=== PATIENT | male | born 1985 | race Caucasian/White ===

== ENCOUNTER → 2020-04-17 14:46 | Outpatient (CLI) | payer OTHER, SELFPAY ==
[2020-04-18 00:36] LABS: COVID19 Sendout Not Detected (Not Detect)
== END ==
PROVIDERS: PCP Naturopath; Visit Provider Nurse Practitioner
DX: Z11.59 Encounter for screening for other viral diseases (principal)
CPT/HCPCS: 87635

== ENCOUNTER 2020-05-25 12:34 | Emergency (ER) | payer OTHER, SELFPAY ==
[2020-05-25 12:40] VITALS: BP 139/101; PULSE 68; RESP 16; TEMP 36.3; O2SAT 98; BMI 27.1
--- NOTE | 2020-05-25 14:59 | DI.RAD.S_ITS ---
PROCEDURE: XR KNEE RT 3V INDICATIONS: atraumatic swelling. TECHNIQUE: 3 views of the knee were acquired. COMPARISON: None. FINDINGS: Bones: No fractures or dislocations. No suspicious bony lesions. Soft tissues: No joint effusion. No suspicious soft tissue calcifications. Prepatellar soft tissue swelling. IMPRESSION: 1. Prepatellar bursitis. 2. No acute fracture. No osseous lesion. If symptoms and/or clinical suspicion for pathology persist, further assessment with repeat, or advanced imaging (e.g., CT, MRI, or bone scan) may be helpful for further assessment. Dictated by: Chelsy Holloway M.D. on 05/25/2020 at 16:04 Approved by: Chelsy Holloway M.D. on 05/25/2020 at 16:06
[2020-05-25 15:00] VITALS: PULSE 68
[2020-05-25 15:16] LABS: Add Manual Diff / Slide Review NO; Basophils Absolute Auto 200 /uL (0-100); Basophils Percent Auto 1.2 % (0-2); Eosinophils Absolute Auto 100 /uL (0-450); Eosinophils Percent Auto 0.6 % (2-4); Hematocrit 41.9 % (41-53); Hemoglobin 14.5 g/dL (13.5-17.5); Lymphocytes Absolute Auto 2700 /uL (1100-4500); Mean Corpuscular HGB Conc 34.6 % (30-36); Mean Corpuscular Hemoglobin 30.7 PG (26-34); Mean Corpuscular Volume 88.6 fL (80-100); Monocytes Absolute Auto 1200 /uL (0-900); Monocytes Percent Auto 9.3 % (3-14); Neutrophils Absolute Auto 8900 /uL (1500-7000); Neutrophils Percent Auto 67.9 % (50-75); Platelet Count 280 X10^3/uL (150-400); Red Blood Cell Count 4.73 X10^6/uL (4.5-5.9); Red Cell Distribution Width 13.2 % (11.6-14.8); White Blood Cell Count 13.1 X10^3/uL (4.5-11.0)
[2020-05-25] MEDS: IBUPROFEN 400 MG TABLET 800 MG PO (15:18)
[2020-05-25 15:37] LABS: BUN Creatinine Ratio 14.9 (6-22); Blood Urea Nitrogen 14 mg/dL (9-20); C-Reactive Protein Quant 2.1 mg/dL (<1.0); Calcium 9.6 mg/dL (8.4-10.2); Carbon Dioxide 26 mmol/L (22-32); Chloride 105 mmol/L (98-107); Estimated Glomerular Filt Rate > 60.0 mL/min (>60); Glucose 89 mg/dL (70-100); HEMOLYSIS 15 (0-50); Potassium 4.3 mmol/L (3.4-5.1); Sodium 139 mmol/L (137-145)
[2020-05-25 15:49] LABS: Procalcitonin < 0.05 ng/mL (<0.5)
[2020-05-25 15:59] LABS: Erythrocyte Sedimentation Rate 19 MM/HR (0-15)
--- NOTE | 2020-05-25 16:05 | PC.NURSE ---
Pt states he got up from seated position and felt pop in right knee. Swelling happened gradually over past few days. Right knee is now swollen over joint (3+) w/ dependent swelling (1+) dependent right leg below knee. Skin is warm to touch. No redness noted. No open wounds. Pt can bear weight and has been taking ibuprofen for discomfort.
[2020-05-25 17:17] VITALS: PULSE 70; RESP 14; O2SAT 99
--- NOTE | 2020-05-25 22:13 | ED_ITS ---
HPI - Extremity Problem <Phani AmandaDENNY cannonP - Last Filed: 05/25/20 22:47> General Chief complaint: Extremity Problem,Nontraumatic Stated complaint: Inflammed Right Knee, Sent from Dr Time Seen by Provider: 05/25/20 16:23 Source: patient Mode of arrival: Ambulatory Limitations: no limitations History of Present Illness HPI Narrative: This is a 34-year-old male, nonsmoker, reports no contributory medical history presents to ED with right knee swelling and discomfort for last 4 days. Initial pain started when he was standing up from a chair and felt his right knee popped. Patient reports he has difficult to flex his right knee and reports pain in medial lower patella region and prepatellar region. Patient denies fever, chills, nausea or vomiting. Patient denies other injuries or similar symptoms in the past. He was seen by flight doctor today and was recommended to come to ED for an evaluation. Patient denies calf pain but reports when he was wearing boots at work he had significant swelling above the boot to affected knee with some redness. Patient reports is able to bear weight on affected leg. Related Data Home Medications Medication Instructions Recorded Confirmed No Known Home Medications 03/04/20 03/04/20 Allergies Allergy/AdvReac Type Severity Reaction Status Date / Time No Known Allergies Allergy Uncoded 04/17/20 15:26 Review of Systems <Phani AmandaMCKINLEY cannon - Last Filed: 05/25/20 22:47> Review of Systems Narrative: General: Denies fever, chills, fatigue, malaise, sweats. HEENT: Denies sinus pain, ear pain, sore throat, difficulty swallowing, dizziness. Respiratory: Denies dyspnea, cough, wheezing, hemoptysis, sputum. Cardiovascular: Denies chest pain, palpitations, orthopnea, edema. Gastrointestinal: Denies nausea, vomiting, abdominal pain, diarrhea, constipation, melena. : Denies dysuria, frequency, incontinence, hematuria, urinary retention. Musculoskeletal: See HPI Skin: See HPI Neurologic: Denies weakness, headache, numbness, change in speech, confusion, seizures, incoordination. Psychiatric: No concerning psychosocial issues. 12-point review of systems is negative except for those stated above. Patient History <DENNY GonzalezP - Last Filed: 05/25/20 22:47> Medical History No significant past medical history (Acute) Surgical History No pertinent past surgical history (Acute) Family History Family/Other Loud snoring Father Hypertension Family/Other Loud snoring Sleep apnea Social History Smoking Status: Never smoker Smoking Status: Never smoker alcohol intake frequency: a few times a week Substance Use Type: does not use Exam <MCKINLEY Gonzalez - Last Filed: 05/25/20 22:47> Narrative Exam Narrative: General appearance: well developed, well nourished, in no acute distress. Head: normocephalic, atraumatic, no scalp lesions, non-tender. ENT: Hearing grossly intact. Nose without bleeding, purulent discharge. Airway patent. Neck/Thyroid: neck supple, full range of motion, no visible masses or meningeal signs. No JVD, non-tender without lymphadenopathy. Skin: Erythema to right knee to extending to anterior ansari above the ankle whi ch is very mild. No warmth in right lower extremity except knee. No significant swelling appreciated per exam. Heart: no clubbing, no cyanosis, no edema. S1 and S2 normal. RRR w/o murmurs, clicks, or bruits. Lungs: Breathing even and unlabored. No stridor. No accessory muscles used. Able to speak in full sentences. Chest: normal shape and expansion. Abdomen: non-obese, non-distended. Neurologic: alert and oriented. Cognitive exam, CAFETERIA OR LUNCHROOM CHECKER and PNS grossly intact on informal exam. Psych: good eye contact, normal affect. Initial Vital Signs Initial Vital Signs: Vital Signs Temperature 97.4 F L 05/25/20 12:40 Pulse Rate 68 05/25/20 12:40 Respiratory Rate 16 05/25/20 12:40 Blood Pressure 139/101 H 05/25/20 12:40 Pulse Oximetry 98 05/25/20 12:40 Extrem Right lower extremity: knee (Positive popliteal pulse in right leg) Details: abnormal to inspection, tenderness, swelling (No significant edema or pitting edema to right lower extremity as patient reported.) Location: of the patella, abnormal ROM Details: pain with active ROM during Details: in flexion and warmth (Localized to patella); no lacerations, no ecchymosis, no crepitus and no deformity and foot Details: normal capillary refill, normal to inspection, toes with normal ROM and vascular exam Details: dorsalis pedis pulse present; no tenderness and no edema <Andres Sim MD - Last Filed: 05/26/20 07:44> Initial Vital Signs Initial Vital Signs: Vital Signs Temperature 97.4 F L 05/25/20 12:40 Pulse Rate 68 05/25/20 12:40 Respiratory Rate 16 05/25/20 12:40 Blood Pressure 139/101 H 05/25/20 12:40 Pulse Oximetry 98 05/25/20 12:40 Scores <MCKINLEY Gonzalez - Last Filed: 05/25/20 22:47> GCS [place] coma scale eye opening: Spontaneous [place] coma scale verbal response: Orientated [place] coma scale motor response: Obey commands [place] coma scale total score: 15 Course <MCKINLEY Gonzalez - Last Filed: 05/25/20 22:47> Orders Ordered: Discontinued Medications Ibuprofen (Advil) 800 mg PO NOW ONE Stop: 05/25/20 15:14 Last Admin: 05/25/20 15:18 Dose: 800 mg Documented by: ILDA Consultations Consultation #1: Patient stepped with Dr. Sim with physical findings, xray/lab test result, and HPI. Vital Signs Vital signs: Vital Signs - 8 hr 05/25/20 15:00 05/25/20 17:17 Pulse Rate 70 Pulse Rate [Right Dorsalis Pedis] 68 Respiratory Rate 14 Pulse Oximetry 99 <Andres Sim MD - Last Filed: 05/26/20 07:44> Orders Ordered: Discontinued Medications Ibuprofen (Advil) 800 mg PO NOW ONE Stop: 05/25/20 15:14 Last Admin: 05/25/20 15:18 Dose: 800 mg Documented by: ILDA Vital Signs Vital signs: Vital Signs - 8 hr 05/25/20 15:00 05/25/20 17:17 Pulse Rate 70 Pulse Rate [Right Dorsalis Pedis] 68 Respiratory Rate 14 Pulse Oximetry 99 MDM - Extremity (Nontraumatic) <Phani DENNY RuizP - Last Filed: 05/25/20 22:47> Differential Diagnosis Differential diagnosis: Likely cellulitis, deep vein thrombosis of lower extremity and other (Patella dislocation, knee bursitis,) Medical Records Attestation: I reviewed the patient's medical records. Lab Data Attestation: I reviewed the patient's lab results. Result diagrams: 05/25/20 15:08 05/25/20 15:08 Labs: Lab Results 05/25/20 05/25/20 05/25/20 Range/Units 15:08 15:08 15:08 WBC 13.1 H (4.5-11.0) X10^3/uL RBC 4.73 (4.5-5.9) X10^6/uL Hgb 14.5 (13.5-17.5) g/dL Hct 41.9 (41-53) % MCV 88.6 (80-100) fL MCH 30.7 (26-34) PG MCHC 34.6 (30-36) % RDW 13.2 (11.6-14.8) % Plt Count 280 (150-400) X10^3/uL Neut % (Auto) 67.9 (50-75) % Lymph % (Auto) 21.0 L (25-40) % [place] % (Auto) 9.3 (3-14) % Eos % (Auto) 0.6 L (2-4) % Baso % (Auto) 1.2 (0-2) % Neut # (Auto) 8900 H (1614-9738) /uL Lymph # (Auto) 2700 (0965-9095) /uL [place] # (Auto) 1200 H (0-900) /uL Eos # (Auto) 100 (0-450) /uL Baso # (Auto) 200 H (0-100) /uL ESR 19 H (0-15) MM/HR Sodium 139 (137-145) mmol/L Potassium 4.3 (3.4-5.1) mmol/L Chloride 105 (98-107) mmol/L Carbon Dioxide 26 (22-32) mmol/L BUN 14 (9-20) mg/dL Creatinine 0.94 (0.66-1.25) mg/dL Estimated GFR > 60.0 (>60) mL/min BUN/Creatinine Ratio 14.9 (6-22) Glucose 89 (70-100) mg/dL Calcium 9.6 (8.4-10.2) mg/dL C-Reactive Protein 2.1 H (<1.0) mg/dL Procalcitonin < 0.05 (<0.5) ng/mL Imaging Data XR-Knee RT: Radiologist's Impression: [address] [address] XRay Report Signed Patient: Colton Patel LMR#: [id number] : 1985Acct:[id number] Age/Sex: 34 / MDate of Service: 05/25/20 Loc: ED Accession Number: [id number] Procedure: XR knee RT 3V Ordering Provider: Andres Sim MD PROCEDURE: XR KNEE RT 3V INDICATIONS: atraumatic swelling. TECHNIQUE: 3 views of the knee were acquired. COMPARISON: None. FINDINGS: Bones: No fractures or dislocations. No suspicious bony lesions. Soft tissues: No joint effusion. No suspicious soft tissue calcifications. Prepatellar soft tissue swelling. IMPRESSION: 1. Prepatellar bursitis. 2. No acute fracture. No osseous lesion. If symptoms and/or clinical suspicion for pathology persist, further assessment with repeat, or advanced imaging (e.g., CT, MRI, or bone scan) may be helpful for further assessment. Dictated by: Chelsy Holloway M.D. on 05/25/2020 at 16:04 Approved by: Chelsy Holloway M.D. 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 Patient denies constitutional symptoms. Right knee x-ray shows prepatellar bursitis without acute fractures or osseous lesions. CBC with mild leukocytosis of 13.1 with neutrophil # of 8900. Very mild elevation of ESR of 19 (0-15) and CRP of 2.1 (<1.0). Procalcitonin was negative. It is likely that this is inflammatory changes rather than infection/cellulitis. Patient has intact sensation, mobility in toes and pulse distally. Popliteal pulses intact in right leg. There is no significant warmth or swelling on affected leg. Consider DVT but patient does not have calf pain. Affected leg was wrapped with Manoj compression dressing for swelling. Patient reports he is able to bear weight and deferred crutches. Patient advised to use and stays to help with inflammation and swelling. Advised to elevate affected leg during rest. Strict return precautions and patient advised to follow-up with primary care physician next 2 days for recheck. Patient verbalized understanding and agreement with treatment plan. <Andres Sim MD - Last Filed: 05/26/20 07:44> Lab Data Labs: Lab Results 05/25/20 05/25/20 05/25/20 Range/Units 15:08 15:08 15:08 WBC 13.1 H (4.5-11.0) X10^3/uL RBC 4.73 (4.5-5.9) X10^6/uL Hgb 14.5 (13.5-17.5) g/dL Hct 41.9 (41-53) % MCV 88.6 (80-100) fL MCH 30.7 (26-34) PG MCHC 34.6 (30-36) % RDW 13.2 (11.6-14.8) % Plt Count 280 (150-400) X10^3/uL Neut % (Auto) 67.9 (50-75) % Lymph % (Auto) 21.0 L (25-40) % [place] % (Auto) 9.3 (3-14) % Eos % (Auto) 0.6 L (2-4) % Baso % (Auto) 1.2 (0-2) % Neut # (Auto) 8900 H (0599-5981) /uL Lymph # (Auto) 2700 (9280-2434) /uL [place] # (Auto) 1200 H (0-900) /uL Eos # (Auto) 100 (0-450) /uL Baso # (Auto) 200 H (0-100) /uL ESR 19 H (0-15) MM/HR Sodium 139 (137-145) mmol/L Potassium 4.3 (3.4-5.1) mmol/L Chloride 105 (98-107) mmol/L Carbon Dioxide 26 (22-32) mmol/L BUN 14 (9-20) mg/dL Creatinine 0.94 (0.66-1.25) mg/dL Estimated GFR > 60.0 (>60) mL/min BUN/Creatinine Ratio 14.9 (6-22) Glucose 89 (70-100) mg/dL Calcium 9.6 (8.4-10.2) mg/dL C-Reactive Protein 2.1 H (<1.0) mg/dL Procalcitonin < 0.05 (<0.5) ng/mL Discharge Plan Departure Patient Disposition: Home Clinical Impression: Bursitis of right knee Qualifiers: Knee bursitis location: prepatellar bursitis Qualified Code(s): M70.41 - Prepatellar bursitis, right knee Discharge Date/Time: 05/25/20 17:18 Instructions: DI for Bursitis Activity Restrictions/Additional Instructions: You have been diagnosed with [left prepatellar bursitis. X-ray test shows no acute findings such as fractures or bony lesions. There is mild elevation in WBC (13.1), CRP (2.1) and ESR (19) and negative procalcitonin level. It is likely these labs are mildly elevated due to inflammation rather than infection.]. What to do: *Take your medications as directed. Please use Manoj wrap and take ibuprofen 400 mg up to 4 times a day as needed with food to decrease inflammation and pain. Please elevate your leg during rest. *Follow up with your primary care provider in 2-3 days, call for an appointment. Let them know you were seen in the ED and that we asked you to be seen in follow up. You may need a referral to orthopedist/physical therapist. *Return to ED if you have any new, worsening, or concerning symptoms, such as [fever, chills, nausea or vomiting, increasing warmth and redness around the knee, chest pain, breathing difficulty, unable to tolerate fluids, decreased sensation/strength on affected leg or any acute concerns]. Prescriptions: No Action No Known Home Medications RF: 0 Referrals: Cindy Mehta MD [Primary Care Provider] - <Andres Sim MD - Last Filed: 05/26/20 07:44> Cosign ED Attending Cosignature Attestation: I was immediately available in the d epartment for consultation. This documentation has been reviewed and I agree with assessment and plan. Supervised by Andres Sim MD
== END 2020-05-25 17:18 | disposition home or self-care (01) ==
PROVIDERS: Emergency Medicine; Emergency Provider Nurse Practitioner Family
DX: M70.41 Prepatellar bursitis, right knee (principal); R79.89 Other specified abnormal findings of blood chemistry
CPT/HCPCS: 36415; 73562; 80048; 84145; 85025; 85651; 86140; 99284

== ENCOUNTER → 2021-09-08 08:50 | Outpatient (CLI) | payer OTHER, SELFPAY ==
--- NOTE | 2021-09-08 | DI.ECHO.S_ITS ---
[facility]---------+ [facility] +---------+ : : [address] : : : : [id number] : : : : Phone: [phone] Echocardiogram Report + + :Name: SONALI BOWERS Study Date: 09/08/2021 Height: 72 in : :[facility] ReadingLocation: Weight: 205 lb : : Gender: Male BSA: 2.2 m2 : :: 1985 Age: 36 yrs BP: 117/84 mmHg: :Reason For Study: CHEST PAIN : :Ordering Physician: SIDNEY, : :BRAYDEN Performed By: Erica Kurtz : :Referring: BRAYDEN LITTLE : + + Interpretation Summary The left ventricle is normal in size. Left ventricular ejection fraction is estimated to be 55 +/- 5%. The right ventricle is normal in size and function. There is mild mitral regurgitation. There is mild tricuspid regurgitation. The right ventricular systolic pressure is estimated to be at least 18 mmHg based on an estimated right atrial pressure of 3 mm Hg. Procedure: A two-dimensional transthoracic echocardiogram with color flow and Doppler was performed. The study quality was technically good. There is no prior echocardiogram noted for this patient. The patient was in sinus bradycardia with heart rates between 47-63 bpm during the exam. Left Ventricle: The left ventricle is normal in size. There is normal left ventricular wall thickness. There is no thrombus. Left ventricular ejection fraction is estimated to be 55 +/- 5%. There are no focal wall motion abnormalities. Diastolic parameters suggest probable normal left ventricular diastolic function and normal filling pressures. Right Ventricle: The right ventricle is normal in size and function. Atria: The left atrial size is normal. Right atrial size is normal. There is no Doppler evidence for an interatrial shunt. Mitral Valve: The mitral valve leaflets appear borderline thickened, but open well. There is no evidence of mitral valve prolapse. There is mild mitral regurgitation. Aortic Valve: The aortic valve is normal in structure and function. The aortic valve is trileaflet. The aortic valve opens well. There is no aortic valve stenosis. No aortic regurgitation is present. Tricuspid Valve: The tricuspid valve is normal. There is mild tricuspid regurgitation. The right ventricular systolic pressure is estimated to be at least 18 mmHg based on an estimated right atrial pressure of 3 mm Hg. Pulmonic Valve: The pulmonic valve leaflets are thin and pliable; valve motion is normal. There is trace pulmonic regurgitation. Great Vessels: The aortic root is normal size. The dimensions of the ascending aorta are normal. The pulmonary artery is normal size. The IVC is of normal diameter and collapses greater than 50% with a sniff. This suggests a low right atrial pressure of 3 mm Hg. Pericardium/ Pleura There is no pericardial effusion. There is no pleural effusion. MMode/2D Measurements & Calculations LVIDd: 5.7 cm LVOT diam: 2.3 cm LVIDs: 3.9 cm Ao root diam: 3.6 cm FS: 31.5 % asc Aorta Diam: 3.8 cm IVSd: 0.93 cm Ao Arch Diam (Prox Trans): 3.2 cm LVPWd: 0.99 cm LV martin. diameter/BSA (cm/m^2): 2.6 LV sys. diameter/BSA (cm/m^2): 1.8 LA A2 area: 19.6 cm2 RA long axis: 5.8 cm LA A4 area: 20.6 cm2 RA area: 23.4 cm2 LA length (vol): 6.3 cm RA vol: 80.9 ml LA vol: 54.6 ml RA : 37.6 ml/m2 LA vol index: 25.4 ml/m2 IVC diam: 1.9 cm TAPSE: 1.8 cm Doppler Measurements & Calculations Ao V2 max: 112.8 cm/sec LVOT Max Masoud: 84.3 cm/sec Ao V2 mean: 72.9 cm/sec LV V1 max P.8 mmHg Ao max P.1 mmHg LV V1 VTI: 17.6 cm Ao mean P.5 mmHg SEKOU(I,D): 3.2 cm2 Ao V2 VTI: 23.9 cm SEKOU(V,D): 3.2 cm2 sev ratio: 0.74 SEKOU indexed to BSA (cm^2/m^2): 1.5 MV E max masoud: 60.2 cm/sec TR max masoud: 193.4 cm/sec MV A max masoud: 42.7 cm/sec TR max P.0 mmHg MV E/A: 1.4 PA V2 max: 95.5 cm/sec Med Peak E' Masoud: 11.4 cm/sec PA V2 mean: 67.7 cm/sec E/E' med: 5.3 PA mean P.0 mmHg Lat Peak E' Masoud: 16.1 cm/sec PA pr(Accel): 3.6 mmHg E/E' lat: 3.7 E/e' average: 4.5 MV dec time: 0.18 sec SV(LVOT): 75.4 ml Reading Physician:12:11 PM
== END ==
PROVIDERS: Referring Provider Orthopaedic Surgery; Visit Provider Orthopaedic Surgery
DX: I08.1 Rheumatic disorders of both mitral and tricuspid valves (principal); R07.9 Chest pain, unspecified
CPT/HCPCS: 93306

== ENCOUNTER → 2024-10-23 06:51 | Outpatient (CLI) | payer OTHER, SELFPAY ==
--- NOTE | 2024-10-23 06:54 | DI.ECHO.S_ITS ---
[facility]---------+ [facility] : : [address] : : [id number] : : Phone: [phone] Echocardiogram Report + + :Name: SONALI BOWERS Study Date: 10/23/2024 Height: 72 in : :[facility] ReadingLocation: Weight: 200 lb : : Gender: Male BSA: 2.1 m2 : :: 1985 Age: 39 yrs BP: 118/83 mmHg: :Reason For Study: ISCHEMIC HEART DISEASE : :Ordering Physician: MANNY, : :CHOLO Performed By: Erica Kurtz : :Referring: CHOLO BRYANT : + + Interpretation Summary The patient was in sinus bradycardia with heart rates between 44-55 bpm during the exam. The ejection fraction is estimated to be 50-55%. Diastolic parameters suggest probable normal left ventricular diastolic function and normal filling pressures. The left atrium is borderline dilated. The right ventricle is mildly dilated. The right ventricular systolic function is normal. There is mild to moderate mitral regurgitation. The right ventricular systolic pressure is estimated to be at least 27 mmHg based on an estimated right atrial pressure of 8 mm Hg. The ascending aorta is mildly enlarged, 3.9 cm. Compared to the prior echo 09/08/2021, the mitral regurgitation has slightly increased as well as the right ventricular size. Procedure: A two-dimensional transthoracic echocardiogram with color flow and Doppler was performed. The study quality was technically adequate. Comparison is made with the echocardiogram of 09/08/2021. The patient was in sinus bradycardia with heart rates between 44-55 bpm during the exam. Left Ventricle: The left ventricle is normal in size and wall thickness. The ejection fraction is estimated to be 50-55%. Diastolic parameters suggest probable normal left ventricular diastolic function and normal filling pressures. Right Ventricle: The right ventricle is mildly dilated. The right ventricular systolic function is normal. Atria: The left atrium is borderline dilated. Right atrial size is normal. There is no Doppler evidence for an interatrial shunt. Mitral Valve: The mitral valve is normal. There is mild to moderate mitral regurgitation. Aortic Valve: The aortic valve is trileaflet. The aortic valve opens well. There is no aortic valve stenosis. No aortic regurgitation is present. Tricuspid Valve: The tricuspid valve leaflets are thin and pliable. There is mild tricuspid regurgitation. The right ventricular systolic pressure is estimated to be at least 27 mmHg based on an estimated right atrial pressure of 8 mm Hg. Pulmonic Valve: The pulmonic valve leaflets are thin and pliable; valve motion is normal. There is trace pulmonic regurgitation. Great Vessels: The aortic root is normal size. The ascending aorta is mildly enlarged. The IVC is dilated (diameter is greater than 2.1 cm) yet it collapses greater than 50% with a sniff. This suggests a right atrial pressure of 8 mm Hg. Pericardium/ Pleura There is no pericardial effusion. There is no pleural effusion. MMode/2D Measurements & Calculations LVIDd: 5.0 cm LVOT diam: 2.4 cm LVIDs: 3.4 cm Ao root diam: 3.7 cm FS: 32.7 % asc Aorta Diam: 3.9 cm EPSS: 0.16 cm Ao Arch Diam (Prox Trans): 3.3 cm IVSd: 1.0 cm LVPWd: 0.94 cm LV martin. diameter/BSA (cm/m^2): 2.4 LV sys. diameter/BSA (cm/m^2): 1.6 LA A2 area: 24.0 cm2 RA long axis: 5.1 cm LA A4 area: 21.6 cm2 RA area: 17.7 cm2 LA length (vol): 6.0 cm RA vol: 52.5 ml LA vol: 73.6 ml RA : 24.7 ml/m2 LA vol index: 34.6 ml/m2 IVC diam: 2.0 cm RVD1 (basal): 4.6 cm RVD2 (mid): 3.1 cm TAPSE: 1.9 cm Doppler Measurements & Calculations Ao V2 max: 111.9 cm/sec LVOT Max Masoud: 89.0 cm/sec Ao V2 mean: 80.4 cm/sec LV V1 max P.2 mmHg Ao max P.0 mmHg LV V1 VTI: 18.5 cm Ao mean P.8 mmHg SEKOU(I,D): 3.4 cm2 Ao V2 VTI: 24.8 cm SEKOU(V,D): 3.6 cm2 sev ratio: 0.74 SEKOU indexed to BSA (cm^2/m^2): 1.6 MV E max masoud: 54.0 cm/sec TR max masoud: 217.6 cm/sec MV A max masoud: 38.0 cm/sec TR max P.9 mmHg MV E/A: 1.4 PA V2 max: 91.6 cm/sec Med Peak E' Masoud: 8.2 cm/sec PA V2 mean: 63.1 cm/sec E/E' med: 6.6 PA mean P.8 mmHg Lat Peak E' Masoud: 13.2 cm/sec PA pr(Accel): 12.2 mmHg E/E' lat: 4.1 E/e' average: 5.3 MV dec time: 0.19 sec MVA(VTI): 4.2 cm2 MR ERO: 0.16 cm2 Pulm A Revs Masoud: 17.8 cm/sec MV V2 mean: 35.1 cm/sec Pulm A Revs Dur: 0.10 sec MV mean P.58 mmHg MV V2 VTI: 19.9 cm MR PISA: 3.0 cm2 SV(LVOT): 84.6 ml MR flow rate: 81.2 cm3/sec MR PISA radius: 0.69 cm Reading Physician:02:11 PM
--- NOTE | 2024-10-23 07:57 | EKG_ITS ---
[place] [address] [address] [address] Test Date: 2024-10-23 Pat Name: Colton Patel Department: DEFAULT Room: Gender: Male [employer]: NORI : 1985 Requested By: Order Number: [id number] Reading MD: Nabeel Harvey MD Measurements Intervals [place] Rate: 51 P: 34 VT: 160 QRS: 6 QRSD: 90 T: 2 QT: 414 QTc: 381 Interpretive Statements Sinus bradycardia Electronically Signed On 10-24-2024 6:54:28 PST by Nabeel Harvey MD
== END ==
PROVIDERS: Referring Provider Chiropractor; Visit Provider Chiropractor
DX: I08.1 Rheumatic disorders of both mitral and tricuspid valves (principal); I25.9 Chronic ischemic heart disease, unspecified; I77.89 Other specified disorders of arteries and arterioles
CPT/HCPCS: 93005; 93010; 93306